=== PATIENT | female | born 1980 | race Caucasian/White ===

== ENCOUNTER 2019-11-26 09:09 | Outpatient (CLI) | payer OTHER, SELFPAY ==
--- NOTE | 2019-11-26 09:52 | MM_ITS ---
WS: [id number] BILATERAL DIGITAL DIAGNOSTIC MAMMOGRAM MAMMOGRAPHY WITH CAD CLINICAL INFORMATION: LUMP OR MASS IM BREAST HISTORY: Palpable lump right breast COMPARISON: July 31, 2016 TECHNIQUE: Bilateral CC, MLO, and ML views. FINDINGS: The breasts are composed of heterogeneous fibroglandular density, which can limit the detection of sm all underlying mass lesions. No definite mammographic abnormalities in the area of the palpable marker upper outer right breast. U ltrasound is pending. Left breast appears unremarkable. ULTRASOUND BREAST RIGHT TECHNIQUE: Ultrasound right breast focused area of concern. CLINICAL INFORMATION: LUMP OR MASS IM BREAST COMPARISON: None. FINDINGS: Ultrasound right breast at the 11:00 position. Hypoechoic lesion at the 11:00 position with internal echogenicity. This corresponds to the patient's palpable abnormality and appears partially cystic but is technically indeterminant. Prominent peripheral vascularity. Considering palpable nature and inte rnal echoes recommend further evaluation with ultrasound-guided biopsy/aspiration. Normal appearing r ight axillary lymph node noted. MM/[place] [id number] IMPRESSION: BI-RADS: 4A-Suspicious: Low FOLLOW UP: US Guided Biopsy Recommended
--- NOTE | 2019-11-26 09:58 | US_ITS ---
WS: [id number] BILATERAL DIGITAL DIAGNOSTIC MAMMOGRAM MAMMOGRAPHY WITH CAD CLINICAL INFORMATION: LUMP OR MASS IM BREAST HISTORY: Palpable lump right breast COMPARISON: July 31, 2016 TECHNIQUE: Bilateral CC, MLO, and ML views. FINDINGS: The breasts are composed of heterogeneous fibroglandular density, which can limit the detection of sm all underlying mass lesions. No definite mammographic abnormalities in the area of the palpable marker upper outer right breast. U ltrasound is pending. Left breast appears unremarkable. ULTRASOUND BREAST RIGHT TECHNIQUE: Ultrasound right breast focused area of concern. CLINICAL INFORMATION: LUMP OR MASS IM BREAST COMPARISON: None. FINDINGS: Ultrasound right breast at the 11:00 position. Hypoechoic lesion at the 11:00 position with internal echogenicity. This corresponds to the patient's palpable abnormality and appears partially cystic but is technically indeterminant. Prominent peripheral vascularity. Considering palpable nature and inte rnal echoes recommend further evaluation with ultrasound-guided biopsy/aspiration. Normal appearing r ight axillary lymph node noted. US/US breast RT limited* [id number] IMPRESSION: BI-RADS: 4A-Suspicious: Low FOLLOW UP: US Guided Biopsy Recommended
== END 2019-11-26 09:10 | disposition home or self-care (01) ==
LOC: RADSHAW 09:10
PROVIDERS: Family Provider Internal Medicine; PCP Internal Medicine; Visit Provider Internal Medicine
DX: N63.10 Unspecified lump in the right breast, unspecified quadrant; N64.89 Other specified disorders of breast
CPT/HCPCS: 76642; 77066

== ENCOUNTER 2019-12-06 12:38 | Outpatient (CLI) | payer OTHER, SELFPAY ==
--- NOTE | 2019-12-06 12:53 | US_ITS ---
WS: [id number] ULTRASOUND-GUIDED RIGHT BREAST BIOPSY HISTORY: RT BREAST MASS COMPARISON: 11/26/2019 Procedure, risks and complications are explained to the patient. Medications are reviewed. Consent is obtained. The mass in the RIGHT breast is localized with ultrasound. Skin is cleansed with ChloraPrep and anest hetized with 1% buffered lidocaine. Small dermatome is made. Under sterile conditions mass is biopsie d with a 14-gauge Achieve needle. Multiple core biopsies are performed. Material placed in formalin a nd sent to pathology for review. No complications encountered. Breast tissue marker (Bard ultrasound enhanced ribbon): None. Patient left the radiology suite with no complications. Patient is instructed to return to [facility] [place] [facility] with any concerns. 1. Uncomplicated core needle biopsy RIGHT breast mass at 9:00, posterior. US/[place] [id number] IMPRESSION: PATHOLOGY: Benign stromal hyperplasia, chronic inflammation and changes suggest cici of a ruptured cyst. No atypia or malignancy. RECOMMENDATION: 6 month RIGHT diagnostic mammogram and ultrasound follow-up. Ultrasound and pathology findings are concordant.
== END 2019-12-06 12:39 | disposition home or self-care (01) ==
LOC: RAD 12:44
PROVIDERS: Family Provider Internal Medicine; PCP Internal Medicine; Visit Provider Internal Medicine
DX: N63.10 Unspecified lump in the right breast, unspecified quadrant (principal); N62 Hypertrophy of breast
CPT/HCPCS: 19083; 88305; J2001

== ENCOUNTER 2021-01-24 11:05 | Outpatient (CLI) | payer OTHER, SELFPAY ==
--- NOTE | 2021-01-24 11:10 | XR_ITS ---
WS: [id number] CHEST 2 VIEWS HISTORY: COUGH COMPARISON: 11/14/2016 Lungs: Clear with no abnormality. No pleural effusion or pneumothorax. Cardiac size: Normal. Mediastinum/Aorta: Normal mediastinum. Bones: Normal. XR/XR chest 2V* [id number] IMPRESSION: Normal chest.
== END 2021-01-24 11:06 | disposition home or self-care (01) ==
PROVIDERS: PCP Internal Medicine; Visit Provider Internal Medicine
DX: R05 Cough (principal)
CPT/HCPCS: 71046

== ENCOUNTER 2024-01-13 14:04 | Outpatient (CLI) | payer OTHER, SELFPAY ==
--- NOTE | 2024-01-13 14:12 | XR_ITS ---
WS: [id number] Lumbar spine, 4 views including both obliques, 01/13/2024 Clinical Data: LUMBAR BACK PAIN Comparison: None. Findings: No compression fractures or subluxation is seen. No disc space narrowing is seen. The transverse proc esses and SI joints are normal. The oblique films show no spondylolysis. There is a slight dextroscoliosis. XR/XR lumbar spine min 4V [id number] Impression: 1. Slight dextroscoliosis. 2. Negative for spine spondylolysis on the oblique films.
== END 2024-01-13 14:05 | disposition home or self-care (01) ==
PROVIDERS: PCP Internal Medicine; Visit Provider Nurse Practitioner Family
DX: M41.86 Other forms of scoliosis, lumbar region (principal)
CPT/HCPCS: 72110

== ENCOUNTER 2024-11-03 12:59 | Outpatient (CLI) | payer OTHER, SELFPAY ==
--- NOTE | 2024-11-03 13:01 | MM_ITS ---
WS: [id number] BILATERAL 3D TOMOSYNTHESIS DIGITAL SCREENING MAMMOGRAPHY WITH CAD CLINICAL INFORMATION: SCREENING HISTORY: Screening mammogram. No current complaints. COMPARISON: 2020 TECHNIQUE: Bilateral CC and MLO views. FINDINGS: The breasts are composed of heterogeneous fibroglandular density tissue, which can limit the detection of small underlying mass lesions. No suspicious mass, asymmetry, calcifications, or architectural distortion. No evidence of malignancy. MM/MM scr tomosynthesis [id number] IMPRESSION: DENSITY: The breasts are heterogeneously dense, which may obscure small masses. BI-RADS: 1 - Negative FOLLOW UP: 1 Year Follow-up Recommend return to annual screening mammography.
== END 2024-11-03 13:00 | disposition home or self-care (01) ==
PROVIDERS: PCP Internal Medicine; Visit Provider Internal Medicine
DX: Z12.31 Encounter for screening mammogram for malignant neoplasm of breast (principal); R92.333 Mammographic heterogeneous density, bilateral breasts
CPT/HCPCS: 77063; 77067